=== PATIENT | male | born 2000 | race Caucasian/White ===

== ENCOUNTER 2018-03-14 09:00 | Emergency (ER) | payer BC ==
[2018-03-14] MEDS ORDERED: Ketorolac INJ* 60 MG/2 ML VIAL IM ONE (09:15)
[2018-03-14 09:25] VITALS: BP 140/97
--- NOTE | 2018-03-14 16:25 | RAD ---
INDICATION: Left shoulder injury. TECHNIQUE: 4 views of the left shoulder were obtained. FINDINGS: The bones are in normal alignment. No fracture is seen. Joint spaces appear maintained. IMPRESSION: NO EVIDENCE OF FRACTURE.
--- NOTE | 2018-03-14 17:02 | UC ---
Mando Vásquez Angela, scribed for John Cook MD on 03/14/18 at 0920 . Upper Extremity HPI - HPI Summary HPI Summary: This pt is a 17 y/o male presenting to [facility] c/o left shoulder pain x2 weeks. Pt states that 2 weeks ago he was lifting something heavy and felt a pop in his left shoulder. He notes his pain since then has been intermittent. His pain is aggravated with movement and alleviated with rest. Pt rates his pain 4 to 5 out of 10 in severity and describes it as non radiating. Pt also reports chronic right knee pain for a couple of years. He rates this pain 1 to 2 out of 10 in severity. Denies trauma or injury. - History of Current Complaint Stated Complaint: LEFT SHOULDER INJURY, RIGHT KNEE PAIN Time Seen by Provider: 03/14/18 09:09 Hx Obtained From: Patient Onset/Duration: Lasting Weeks, Still Present Severity Currently: Moderate Pain Intensity: 5 Pain Scale Used: 0-10 Numeric Location Of Pain: Is Discrete @ - left shoulder Aggravating Factor(s): Movement Alleviating Factor(s): Rest Associated Signs And Symptoms: Positive: Negative - Allergies/Home Medications Allergies/Adverse Reactions: Allergies Allergy/AdvReac Type Severity Reaction Status Date / Time SEASONAL Allergy Mild Unknown Uncoded 03/14/18 09:25 Reaction Details PMH/Surg Hx/FS Hx/Imm Hx Other Endocrine History: DENIES: diabetes Other Cardiovascular History: DENIES: HTN Respiratory History: Asthma - Surgical History Surgical History: Yes Surgery Procedure, Year, and Place: TUBES IN EARS, addenoids - Family History Known Family History: Positive: Cardiac Disease, Hypertension - Social History Alcohol Use: Occasionally Substance Use Type: None Smoking Status (MU): Current Every Day Smoker - Immunization History Vaccination Up to Date: Yes Review of Systems Constitutional: Negative Skin: Negative Eyes: Negative ENT: Negative Respiratory: Negative Cardiovascular: Negative Gastrointestinal: Negative Genitourinary: Negative Motor: Negative Neurovascular: Negative Musculoskeletal: Other: - left shoulder pain, right knee pain Neurological: Negative Psychological: Negative All Other Systems Reviewed And Are Negative: Yes Physical Exam - Summary Physical Exam Summary: VITAL SIGNS: Reviewed. GENERAL: Patient is a well-developed and nourished male who is lying comfortable in the stretcher. Patient is not in any acute respiratory distress. HEAD AND FACE: Normocephalic EYES: PERRLA, EOMI x 2. EARS: Hearing grossly intact. MOUTH: Oropharynx within normal limits. NECK: Supple, trachea is midline, no adenopathy, no JVD, no carotid bruit. CHEST: Symmetric, no tenderness at palpation LUNGS: Clear to auscultation bilaterally. No wheezing or crackles. CVS: Regular rate and rhythm, S1 and S2 present, no murmurs or gallops appreciated. ABDOMEN: Soft, non-tender. Bowel sounds are normal. No abdominal abnormal pulsations. EXTREMITIES: no edema, no cyanosis or clubbing. Decreased ROM of left shoulder. No ecchymosis. No hematoma. Pt is neurovascular intact. NEURO: Alert and oriented x 3. No acute neurological deficits. Speech is normal and follows commands. SKIN: Dry and warm Triage Information Reviewed: Yes Vital Signs Reviewed: Yes Diagnostics - Radiology Left shoulder XR Radiology Interpretation Completed By: ED Physician - no fracture or dislocation , Radiologist - pending offical radiologist report, [facility] Upper Extremity Course/Dx - Course Course Of Treatment: This pt is a 17 y/o male presenting to [facility] c/o left shoulder pain x2 weeks. Pt states that 2 weeks ago he was lifting something heavy and felt a pop in his left shoulder. He notes his pain since then has been intermittent. His pain is aggravated with movement and alleviated with rest. Pt rates his pain 4 to 5 out of 10 in severity and describes it as non radiating. Pt also reports chronic right knee pain for a couple of years. He rates this pain 1 to 2 out of 10 in severity. Denies trauma or injury. Left shoulder XR is negative for a fracture or dislocation. In the UC course the pt was given Toradol for the pain. After this medication the pts symptoms have resolved and he is pain free. I discussed the XR results and findings with the patient. Pt was instructed to return to the urgent care or go to ER immediately if any of the symptoms return or worsens. Plan of care was discussed with the patient and pt understands and agrees. All questions were answered to patient satisfaction. There were no further complaints or concerns. Pt will be discharged to home with follow up from orthopedics and his PCP. He was given a prescription for Motrin. Pt is hemodynamically stable, alert and oriented x3. The patient was found to have increased blood pressure in UC. The patient will follow up with PCP for better control of BP. - Differential Dx/Diagnosis Provider Diagnoses: Shoulder pain. Knee pain Discharge - Sign-Out/Discharge Documenting (check all that apply): Discharge - discharge to home - Discharge Plan Condition: Stable Disposition: HOME Prescriptions: Ibuprofen TAB* [Motrin TAB* 600 MG] 600 mg PO Q8H PRN #20 tab PRN Reason: Pain Patient Education Materials: Knee Pain (ED), Arthralgia (ED) Forms: *Work Release Referrals: Manuel ANTOINE,Ze Odom [Primary Care Provider] - Antolin Moran MD [Medical Doctor] - 2 Days Additional Instructions: Take medications as instructed Increase your fluid intake Return to the if symptoms worsen FOLLOW UP WITH YOUR PRIMARY CARE PROVIDER WITHIN ONE WEEK FOR HIGH BLOOD PRESSURE NOTED TODAY. RETURN TO URGENT CARE OR THE ED FOR ANY WORSENING OR NEW SYMPTOMS. The documentation as recorded by the Mando melendez Angela accurately reflects the service I personally performed and the decisions made by , John Cook MD.
== END 2018-03-14 10:05 | disposition home or self-care (01) ==
LOC: UCEAST 09:00
DX: M25.512 Pain in left shoulder (principal); M25.561 Pain in right knee; F17.210 Nicotine dependence, cigarettes, uncomplicated
CPT/HCPCS: 99212; G0463; J1885

== ENCOUNTER 2018-03-15 07:50 | Emergency (ER) | payer BC ==
[2018-03-15 08:17] VITALS: BP 120/62
--- NOTE | 2018-03-15 08:26 | UC ---
Shoulder Pain HPI - HPI Summary HPI Summary: 17 yo gentleman presents with father, requesting another opinion re L shoulder pain. A couple weeks ago, he was lifting heavy object above his head, felt sudden pain, continues. No other injury / pain reported. No p/d/w (except hurts to move the shoulder). Seen yesterday at [facility], Xrays L shoulder unremarkable. Referred outpt to orthopedics. - History of Current Complaint Chief Complaint: UCUpperExtremity Stated Complaint: LEFT SHOULDER COMPLAINT Time Seen by Provider: 03/15/18 08:23 Hx Obtained From: Patient, Family/Ichthyology Teacher Pain Intensity: 7 - Allergies/Home Medications Allergies/Adverse Reactions: Allergies Allergy/AdvReac Type Severity Reaction Status Date / Time SEASONAL Allergy Mild Unknown Uncoded 03/15/18 08:18 Reaction Details PMH/Surg Hx/FS Hx/Imm Hx Previously Healthy: Yes - Surgical History Surgical History: Yes Surgery Procedure, Year, and Place: TUBES IN EARS, adenoids - Family History Known Family History: Positive: Cardiac Disease, Hypertension - Social History Alcohol Use: Occasionally Substance Use Type: Marijuana Substance Use Comment - Amount & Last Used: last night Smoking Status (MU): Current Some Day Smoker Type: Smokeless Tobacco - Immunization History Most Recent Tetanus Shot: unknown Vaccination Up to Date: Yes Review of Systems Constitutional: Negative Skin: Negative Eyes: Negative ENT: Negative Respiratory: Negative Cardiovascular: Negative Gastrointestinal: Negative Genitourinary: Negative Motor: Other - see hpi Neurovascular: Negative Musculoskeletal: Arthralgia Neurological: Negative Psychological: Negative Is Patient Immunocompromised?: No All Other Systems Reviewed And Are Negative: Yes Physical Exam Triage Information Reviewed: Yes Appearance: Well-Nourished Vital Signs: Initial Vital Signs Temp 98.3 F 03/15/18 08:10 Pulse 64 03/15/18 08:10 Resp 18 03/15/18 08:10 BP 120/62 03/15/18 08:10 Pulse Ox 99 03/15/18 08:10 Vital Signs Reviewed: Yes Eye Exam: Normal - grossly normal ENT Exam: Normal - grossly normal, dentition incidental noted + caries Neck exam: Normal Neck: Positive: Supple Respiratory Exam: Normal Respiratory: Positive: Chest non-tender, Lungs clear, Normal breath sounds, No respiratory distress, No accessory muscle use Cardiovascular Exam: Normal Cardiovascular: Positive: RRR, No Murmur, Pulses Normal, Brisk Capillary Refill Abdominal Exam: Normal Abdomen Description: Positive: Nontender Musculoskeletal Exam: Other - L shoulder tender ant shoulder. Also some tender ac region. No crepitus or skin discoloration. Full extension (slowly), + post rotation. Abduct barely to 90 active and slightly more passive. Distal pulse present. No elbow tenderness reported or noted to exam. Neurological Exam: Normal - grossly nonfocal Ax N sensation bilat present Psychological Exam: Normal - conversing easily and appropriately Shoulder Course/Dx - Course Course Of Treatment: Reviewed yesterday's [facility] notes and xray report. Sling given to pt today. we [place] [place] they will see Mr. Thompson this morning. As such, they departed from here to go there. Questions as posed answered to the best of my ability. - Differential Dx/Diagnosis Provider Diagnoses: L shoulder strain, likely ligmentous injury and / or sprain Discharge - Sign-Out/Discharge Documenting (check all that apply): Discharge - Discharge Plan Condition: Stable Disposition: HOME Patient Education Materials: Shoulder Pain (ED) Referrals: Ricky Wyman MD [Medical Doctor] - Manuel ANTOINE,Ze Odom [Primary Care Provider] - Additional Instructions: Go to the Orthopedic office. Dr. Wyman will see you. Sling. Further recommendations per orthopedic office. - Billing Disposition and Condition Condition: STABLE Disposition: HOME
== END 2018-03-15 09:22 | disposition home or self-care (01) ==
LOC: UCCORT 07:50
DX: S46.912A Strain of unspecified muscle, fascia and tendon at shoulder and upper arm level, left arm, initial encounter (principal); F17.290 Nicotine dependence, other tobacco product, uncomplicated; Z91.09 Other allergy status, other than to drugs and biological substances; X50.0XXA Overexertion from strenuous movement or load, initial encounter; Y93.89 Activity, other specified; Y92.9 Unspecified place or not applicable
CPT/HCPCS: 99212; G0463

== ENCOUNTER 2020-01-26 15:05 | Emergency (ER) | payer SELFPAY ==
[2020-01-26 15:15] VITALS: BP 140/81
[2020-01-26] MEDS ORDERED: Ibuprofen TAB* 600 MG PO ONE (15:20)
[2020-01-26] MEDS ORDERED: Tetan/Diph/Pertus SYR(Tdap)* 0.5 ML SYR(BOOSTRIX) use SYR contains LATEX IM ONE (15:21)
[2020-01-26] MEDS ORDERED: Lidocaine 2% w EPI 1:100,000* 20 ML MDV VIAL INJ ONE (15:39)
--- NOTE | 2020-01-26 15:46 | UC ---
Laceration HPI - HPI Summary HPI Summary: 19 yo male was goofing around with a co worker and sustained two lacerations to his left anterior neck with a hand drill Td not up to date - History Of Current Complaint Chief Complaint: UCLaceration Stated Complaint: NECK LAC (WC) Time Seen by Provider: 01/26/20 15:31 Hx Obtained From: Patient Laceration Location: Neck Mechanism Of Injury: Sharp Trauma Onset/Duration: Sudden Onset, Lasting Minutes Severity: Severe Pain Intensity: 10 - Allergies/Home Medications Allergies/Adverse Reactions: Allergies Allergy/AdvReac Type Severity Reaction Status Date / Time SEASONAL Allergy Mild Unknown Uncoded 01/26/20 15:15 Reaction Details Home Medications: Home Medications Cephalexin CAP* [Keflex CAP*] 500 mg PO TID #21 cap 01/26/20 [Rx] PMH/Surg Hx/FS Hx/Imm Hx Previously Healthy: Yes - Surgical History Surgical History: Yes Surgery Procedure, Year, and Place: TUBES IN EARS, adenoids - Family History Known Family History: Positive: Cardiac Disease, Hypertension - Social History Alcohol Use: Occasionally Substance Use Type: Marijuana Substance Use Comment - Amount & Last Used: daily Smoking Status (MU): Light Every Day Tobacco Smoker Type: Smokeless Tobacco Amount Used/How Often: 1/2 ppd - Immunization History Most Recent Tetanus Shot: unknown Vaccination Up to Date: Yes Review of Systems All Other Systems Reviewed And Are Negative: Yes Constitutional: Positive: Negative Skin: Positive: Other - lac Eyes: Positive: Negative ENT: Positive: Negative Respiratory: Positive: Negative Cardiovascular: Positive: Negative Gastrointestinal: Positive: Negative Genitourinary: Positive: Negative Motor: Positive: Negative Neurovascular: Positive: Negative Musculoskeletal: Positive: Negative Neurological/Mental Status: Positive: Negative Psychological: Positive: Negative Physical Exam Triage Information Reviewed: Yes Appearance: Well-Appearing, No Pain Distress, Well-Nourished Vital Signs: Initial Vital Signs Temp 98.7 F 01/26/20 15:11 Pulse 81 01/26/20 15:11 Resp 18 01/26/20 15:11 BP 140/81 01/26/20 15:11 Pulse Ox 99 01/26/20 15:11 Vital Signs Reviewed: Yes Eyes: Positive: Conjunctiva Clear ENT: Positive: Hearing grossly normal. Negative: Nasal congestion, Nasal drainage, Trismus, Muffled voice, Hoarse voice Neck: Positive: Supple, No Lymphadenopathy Respiratory: Positive: Lungs clear, Normal breath sounds, No respiratory distress, No accessory muscle use Cardiovascular: Positive: RRR, No Murmur Musculoskeletal: Positive: ROM Intact, No Edema Neurological: Positive: Alert Psychological Exam: Normal Skin Exam: Other - lacs to neck Images Head: 1 - lac 2 - lac Laceration Repair - Laceration Repair 1 Description: Irregular Laceration Size After Repair: Length (cm) - 2.3, Width (mm) - 4, Depth (mm) - 1 Modified For Repair: No Anesthesia Used: 2.0% Lido Additive Used (in ml): Epi Cleansing Completed Via Routine Prep: Yes Irrigation With Pressure Irrigation Device: Yes Closure Material: Sutures Closure Method: Single Layer Suture Of: Skin Suture Type: Nylon - #7 2 Laceration Size After Repair: Length (cm) - 2.3, Width (mm) - 10, Depth (mm) - 8 Debridement: minimal Anesthesia Used: 2.0% Lido Additive Used (in ml): Epi Cleansing Completed Via Routine Prep: Yes Irrigation With Pressure Irrigation Device: Yes Closure Material: Sutures Closure Method: Multilayer Suture Of: Skin, SQ Suture Type: Nylon - 7 6-0, Vicryl - 3 4-0 Laceration Course/Dx - Diagnosis Provider Diagnosis: Laceration of neck Discharge ED - Sign-Out/Discharge Documenting (check all that apply): Patient Departure All imaging exams completed and their final reports reviewed: No Studies - Discharge Plan Condition: Stable Disposition: HOME Prescriptions: Cephalexin CAP* [Keflex CAP*] 500 mg PO TID #21 cap Patient Education Materials: Laceration (ED) Referrals: Manuel ANTOINE,Ze Odom [Primary Care Provider] - (you need a recheck of your BP in 2 -20 weeks (140-81)) Additional Instructions: gently clean twice daily with soap and water apply thin film of antibiotic ointment and dressing RECHECK HERE in 2-3 days for wound recheck sutures need to be removed in 7-10 days TO ER FOR CONCERNS OF INFECTION - Billing Disposition and Condition Condition: STABLE Disposition: Home
[2020-01-26] MEDS ORDERED: Cephalexin CAP* 500 MG PO ONE (16:26)
== END 2020-01-26 16:49 | disposition home or self-care (01) ==
LOC: UCCORT 15:05
DX: S11.81XA Laceration without foreign body of other specified part of neck, initial encounter (principal); F17.290 Nicotine dependence, other tobacco product, uncomplicated; Z91.09 Other allergy status, other than to drugs and biological substances; W31.0XXA Contact with mining and earth-drilling machinery, initial encounter; Y92.9 Unspecified place or not applicable; Y99.0 Civilian activity done for income or pay
CPT/HCPCS: 12002; 90471; 90715; 99212; A9270-GY; G0463

== ENCOUNTER 2020-02-05 09:17 | Emergency (ER) | payer SELFPAY ==
[2020-02-05 09:29] VITALS: BP 126/75
--- NOTE | 2020-02-05 10:02 | UC ---
HPI Wound/Suture Re-check - HPI Summary HPI Summary: Pt presents for removal of sutures placed on 02/24/20 here. - History Of Current Complaint Chief Complaint: UCLaceration Stated Complaint: SUTURE CHECK,PAIN Time Seen by Provider: 02/05/20 09:31 Hx Obtained From: Patient Onset/Duration: Sudden Onset, Lasting Days, Still Present Severity: Moderate Pain Intensity: 5 - Allergies/Home Medications Allergies/Adverse Reactions: Allergies Allergy/AdvReac Type Severity Reaction Status Date / Time SEASONAL Allergy Mild Unknown Uncoded 02/05/20 09:27 Reaction Details Home Medications: Home Medications Cephalexin CAP* [Keflex CAP*] 500 mg PO TID #21 cap 01/26/20 [Rx Confirmed 02/04] PMH/Surg Hx/FS Hx/Imm Hx Previously Healthy: Yes - Surgical History Surgical History: Yes Surgery Procedure, Year, and Place: TUBES IN EARS, adenoids - Family History Known Family History: Positive: Cardiac Disease, Hypertension - Social History Occupation: Employed Full-time - tile mechanic helper Alcohol Use: Occasionally Substance Use Type: Marijuana Substance Use Comment - Amount & Last Used: daily Smoking Status (MU): Light Every Day Tobacco Smoker Type: Smokeless Tobacco Amount Used/How Often: 1/2 ppd Have You Smoked in the Last Year: Yes - Immunization History Most Recent Tetanus Shot: unknown Vaccination Up to Date: Yes Review of Systems All Other Systems Reviewed And Are Negative: Yes Constitutional: Positive: Negative Skin: Positive: Other - here for suture remova Eyes: Positive: Negative ENT: Positive: Negative Respiratory: Positive: Negative Cardiovascular: Positive: Negative Gastrointestinal: Positive: Negative Genitourinary: Positive: Negative Motor: Positive: Negative Neurovascular: Positive: Negative Musculoskeletal: Positive: Myalgia - at suture site Neurological/Mental Status: Positive: Negative Psychological: Positive: Negative Is Patient Immunocompromised?: No Physical Exam Triage Information Reviewed: Yes Appearance: Other: - unkempt Vital Signs: Initial Vital Signs Temp 98.5 F 02/05/20 09:25 Pulse 60 02/05/20 09:25 Resp 14 02/05/20 09:25 BP 126/75 02/05/20 09:25 Pulse Ox 99 02/05/20 09:25 Vital Signs Reviewed: Yes Eye Exam: Normal ENT Exam: Normal Dental: Positive: Gross Decay/Caries @ Neck: Positive: Other: Respiratory Exam: Normal Cardiovascular Exam: Normal Musculoskeletal Exam: Normal Neurological Exam: Normal Psychological Exam: Normal Skin Exam: Other - sutures intact left lower neck, anterior Course/Dx - Course Course Of Treatment: sutures removed, small amount of dried serous fluid, no purulent drainage not significant erythema. Pt did c/o tenderness at site. - Differential Dx - Laceration/Wound Differential Diagnoses: Suture Removal - Diagnosis Provider Diagnosis: Visit for suture removal Discharge ED - Sign-Out/Discharge Documenting (check all that apply): Patient Departure All imaging exams completed and their final reports reviewed: No Studies - Discharge Plan Condition: Stable Disposition: HOME Patient Education Materials: Steristrips (ED), Stitches Removal (ED) Referrals: Manuel ANTOINE,Ze Odom [Primary Care Provider] - If Needed - Billing Disposition and Condition Condition: STABLE Disposition: Home - Attestation Statements Provider Attestation: This patient was not seen by me. I was available for consult. Chart reviewed. NORMAN
== END 2020-02-05 10:09 | disposition home or self-care (01) ==
LOC: UCCORT 09:17
DX: S11.91XD Laceration without foreign body of unspecified part of neck, subsequent encounter (principal); X58.XXXD Exposure to other specified factors, subsequent encounter; Z91.09 Other allergy status, other than to drugs and biological substances; F17.210 Nicotine dependence, cigarettes, uncomplicated